=== PATIENT | female | born 1930 | race African-American/Black ===

== ENCOUNTER 2016-04-23 11:35 | Inpatient (IN) | payer MEDICARE ==
[~2016-04-23] VITALS: Ht 154.9 cm; Wt 72.6 kg
--- NOTE | 2016-04-23 12:33 | EKG ---
[facility] [address] [place] [address] Test Date: 2016-04-23 Test Time: 12:08:03 Pat Name: JAMESON FERNANDEZ Department: Room: Gender: Female Project Management It Specialist: : [id number] Requested By: PURA GRAY Order Number: [id number] Reading MD: Ayesha Smith Measurements Intervals [place] Rate: 62 P: -3 FL: 156 QRS: -31 QRSD: 154 T: 128 QT: 464 QTc: 473 Interpretive Statements SINUS RHYTHM ATRIAL PREMATURE COMPLEX(ES) ABNORMAL LEFT AXIS DEVIATION NON SPECIFIC INTRAVENTRICULAR BLOCK RI6.01 Unconfirmed report No previous ECG available for comparison Electronically Signed On 04-26-2016 15:51:55 [employer] by Ayesha Smith
--- NOTE | 2016-04-23 12:34 | PHYS DOC ---
Past Medical History Past Medical History: High Cholesterol, Hypertension Past Surgical History: No Surgical History Alcohol Use: None Drug Use: None Adult General Chief Complaint Chief Complaint: SYNCOPE HPI HPI 85-year-old female who was at [facility] today sitting in a pew and developed an episode of syncope that she said was preceded by some lightheadedness and feeling warm and sweaty. She denies any chest pain or shortness breath. The event was witnessed. She did not fall or hit her head. Patient was mildly confused upon arousal. Does not sound like there was any convulsions or abnormal muscle activity. Patient states over the last several weeks she's had ongoing flulike illness with cough and congestion. She states it her symptoms have been improving and she's been attempting to remain well-hydrated at home. She states she has never had an episode like this before. Review of Systems Review of Systems Constitutional: Denies fever or chills [] Eyes: Denies change in visual acuity, redness, or eye pain [] HENT: Has nasal congestion, denies sore throat [] Respiratory: Has cough, denies shortness of breath [] Cardiovascular: No additional information not addressed in HPI [] GI: Denies abdominal pain, nausea, vomiting, bloody stools or diarrhea [] : Denies dysuria or hematuria [] Musculoskeletal: Denies back pain or joint pain [] Integument: Denies rash or skin lesions [] Neurologic: Denies headache, focal weakness or sensory changes [] Endocrine: Denies polyuria or polydipsia [] Current Medications Current Medications Current Medications Medications (Trade) Dose Ordered Sig/[place] Start Time Stop Time Status Last Admin Dose Admin Lorazepam (Ativan) 0.5 mg 1X ONCE 04/23/16 13:15 04/23/16 13:16 DC 04/23/16 13:48 0.5 MG Allergies Allergies Allergies Coded Allergies Type Severity Reaction Last Updated Verified No Known Drug Allergies 04/23/16 No Physical Exam Physical Exam Constitutional: Well developed, well nourished, no acute distress, non-toxic appearance. [] HENT: Normocephalic, atraumatic, bilateral external ears normal, oropharynx moist, no oral exudates, nose normal. [] Eyes: PERRLA, EOMI, conjunctiva normal, no discharge. [] Neck: Normal range of motion, no tenderness, supple, no stridor. [] Cardiovascular:Heart rate regular rhythm, no murmur [] Lungs & Thorax: Bilateral breath sounds clear to auscultation [] Abdomen: Bowel sounds normal, soft, no tenderness, no masses, no pulsatile masses. [] Skin: Warm, dry, no erythema, no rash. [] Back: No tenderness, no CVA tenderness. [] Extremities: No tenderness, no cyanosis, no clubbing, ROM intact, no edema. [] Neurologic: Alert and oriented X 3, normal motor function, normal sensory function, no focal deficits noted. [] Psychologic: Affect normal, judgement normal, mood normal. [] Current Patient Data Vital Signs Vital Signs Date Time Temp Pulse Resp B/P Pulse Ox O2 Delivery O2 Flow Rate FiO2 04/23/16 12:30 66 20 125/65 98 04/23/16 12:00 Room Air 04/23/16 11:50 97.5 97.5 Lab Values Laboratory Tests Test 04/23/16 13:05 04/23/16 13:10 Influenza Type A Antigen Negative (NEGATIVE) Influenza Type B Antigen Negative (NEGATIVE) White Blood Count 5.9x10^3/uL (4.0-11.0) Red Blood Count 5.73x10^6/uL (3.50-5.40) H Hemoglobin 15.1g/dL (12.0-15.5) Hematocrit 47.0% (36.0-47.0) Mean Corpuscular Volume 82fL (79-100) Mean Corpuscular Hemoglobin 26pg (25-35) Mean Corpuscular Hemoglobin Concent 32g/dL (31-37) Red Cell Distribution Width 15.9% (11.5-14.5) H Platelet Count 189x10^3/uL (140-400) Neutrophils (%) (Auto) 78% (31-73) H Lymphocytes (%) (Auto) 14% (24-48) L Monocytes (%) (Auto) 7% (0-9) Eosinophils (%) (Auto) 0% (0-3) Basophils (%) (Auto) 1% (0-3) Neutrophils # (Auto) 4.6x10^3uL (1.8-7.7) Lymphocytes # (Auto) 0.8x10^3/uL (1.0-4.8) L Monocytes # (Auto) 0.4x10^3/uL (0.0-1.1) Eosinophils # (Auto) 0.0x10^3/uL (0.0-0.7) Basophils # (Auto) 0.0x10^3/uL (0.0-0.2) Sodium Level 139mmol/L (136-145) Potassium Level 4.1mmol/L (3.5-5.1) Chloride Level 102mmol/L (98-107) Carbon Dioxide Level 29mmol/L (21-32) Anion Gap 8 (6-14) Blood Urea Nitrogen 30mg/dL (7-20) H Creatinine 1.6mg/dL (0.6-1.0) H Estimated GFR (Cockcroft-Gault) 37.1 Glucose Level 147mg/dL (70-99) H Calcium Level 9.7mg/dL (8.5-10.1) Laboratory Tests 04/23/16 13:10 Laboratory Tests 04/23/16 13:10 EKG EKG EKG as interpreted by me shows a sinus rhythm with a rate of 62 bpm. There is non-specific intraventricular block. Radiology/Procedures Radiology/Procedures CT of the head without contrast demonstrates the following: Findings: No acute intracranial hemorrhage or midline shift or mass-effect or hydrocephalus or extra-axial fluid collection is seen. No focal hypodense area or sulci effacement is seen to indicate an acute infarct or edema radiographically. No skull fracture or pneumocephalus is seen. No opacification of the mastoid sinuses or the paranasal sinuses is seen. The maxillary sinuses are not completely seen in this study. Impression: No acute intracranial abnormality is seen. Portable view her chest does not reveal an acute cardiopulmonary process. Course & Med Decision Making Course & Med Decision Making Pertinent Labs and Imaging studies reviewed. (See chart for details) This 85-year-old female with a syncopal episode while at [facility] complete laboratory workup including EKG and a head CT. Her EKG at this time does show a nonspecific into intraventricular block but no other acute abnormalities seen. I will discuss the need to likely admit this patient for further evaluation and treatment pending further workup with cardiology to see her as well. Her symptoms do not seem related to any seizure activity. The most likely source is her ongoing illness versus cardiac etiology. At this time, the patient is in no acute distress and is totally appropriate upon my exam. Her laboratory workup is unrevealing. I discussed the need for admission with the hospitalist, Dr. Suresh, who agreed to admit the patient for further evaluation treatment with the diagnosis of syncope and possible TIA. Dragon Disclaimer Dragon Disclaimer This electronic medical record was generated, in whole or in part, using a voice recognition dictation system. Departure Departure Impression: Primary Impression: Syncope Additional Impression: TIA (transient ischemic attack) Disposition: 09 ADMITTED INPATIENT Admitting Physician: Lonnie Suresh Condition: STABLE Problem Qualifiers PURA GRAY DO Apr 23, 2016 12:34
--- NOTE | 2016-04-23 12:40 | RAD ---
Indication syncopal episode. Single view of the chest was obtained. No prior imaging is available. Heart size is normal. Slightly tortuous perhaps minimally aneurysmal dilatation of the arch of the aorta is noted. There is no congestive heart failure focal infiltrate significant pleural fluid collection or pneumothorax. IMPRESSION: Slightly prominent arch of the aorta. No acute finding apparent in the chest
[2016-04-23] MEDS ORDERED: LORAZEPAM 2 MG/ML VIAL IV ONE (13:15)
[2016-04-23 13:27] LABS: BASO % 1 % (0-3); EOS % 0 % (0-3); HEMOGLOBIN 15.1 g/dL (12.0-15.5); LYMPH # 0.8 x10^3/uL (1.0-4.8); LYMPH % 14 % (24-48); MEAN CORPUSCULAR HEMOGLOBIN 26 pg (25-35); MEAN CORPUSCULAR HGB CONC 32 g/dL (31-37); MEAN CORPUSCULAR VOLUME 82 fL (79-100); MONO % 7 % (0-9); NEUT % 78 % (31-73); PLATELET COUNT 189 x10^3/uL (140-400); RED BLOOD COUNT 5.73 x10^6/uL (3.50-5.40); RED CELL DISTRIBUTION WIDTH 15.9 % (11.5-14.5); WHITE BLOOD COUNT 5.9 x10^3/uL (4.0-11.0)
[2016-04-23] MEDS ORDERED: ONDANSETRON PF 4 MG/2 ML VIAL. IV PRN (13:30)
[2016-04-23 13:37] LABS: CALCIUM 9.7 mg/dL (8.5-10.1); CREATININE 1.6 mg/dL (0.6-1.0); GFR 37.1; POTASSIUM 4.1 mmol/L (3.5-5.1)
[2016-04-23] MEDS: IV NORMAL SALINE 1000ML BAG 1,000 ML IV SCH (13:48)
[2016-04-23 13:57] LABS: OBC FLU VALID
--- NOTE | 2016-04-23 14:11 | RAD ---
Clinical indications: Syncope. Patient is a poor historian. Technique: Noncontrast axial cross sectional scanning of the head was performed. PQRS Compliance Statement: One or more of the following individualized dose reduction techniques were utilized for this examination: 1. Automated exposure control 2. Adjustment of the mA and/or kV according to patient size 3. Use of iterative reconstruction technique Findings: No acute intracranial hemorrhage or midline shift or mass-effect or hydrocephalus or extra-axial fluid collection is seen. No focal hypodense area or sulci effacement is seen to indicate an acute infarct or edema radiographically. No skull fracture or pneumocephalus is seen. No opacification of the mastoid sinuses or the paranasal sinuses is seen. The maxillary sinuses are not completely seen in this study. Impression: No acute intracranial abnormality is seen.
--- NOTE | 2016-04-23 16:05 | ACF ---
Admission Forms Criteria SYNCOPE Clinical Indications for Admission to Inpatient Care ( Place 'X' for any and all applicable criteria): Admission is indicated for syncope and ANY ONE of the following (1)(2)(3)(4)(5) (6)(7) : [X]I. Inpatient admission required rather than observation care (Also use Syncope: Observation Care Criteria as appropriate) because of ANY ONE of the following: [ ]a) Hemodynamic instability that is severe or persistent [ ]b) Cardiac arrhythmias of immediate concern identified or strongly suspected (eg, needs electrophysiologic study) [ ]c) Acute coronary syndrome identified (Also use Myocardial Infarction or Angina Criteria form ) [ ]d) Structural cardiac disorder (eg, aortic stenosis) suspected as cause that requires immediate correction [ ]e) Respiratory symptoms (eg, dyspnea, tachypnea) that are severe or persistent [ ]f) Neurologic signs or symptoms that are severe or persistent ( eg, stroke, seizures, altered mental status) [ ]g) Severe electrolyte abnormalities requiring inpatient care [ ]h) Supplemental oxygen or respiratory treatment for over 24 hrs that are performable only in acute inpatient setting [ ]i) IV fluid to replace significant ongoing (eg, for over 24 hrs ) losses (>3 L/m2 per day) [ ]j) Continuous intravenous infusion of anticoagulation, platelet inhibitor, vasoactive, or antiarrhythmic medication(15)(16) [ ]k) Pulmonary artery catheter monitoring [ ]l) Temporary pacemaker placement(17) [ ]m) Emergent cardioversion(18) [X]n) Other conditions, treatment or monitoring requiring inpatient admission [ ]II. Suspicion of imminently dangerous cause (eg, rare causes like pericardial tamponade, pulmonary embolism) [ ]III. Syncope causing severe injury requiring hospitalization Extended stay beyond goal length of stay may be needed for(28) [ ]a) Dangerous arrhythmia(15)(23)(27)(29) [ ]b) Myocardial ischemia [ ]c) Seizure disorder [ ]d) Syncope-related injuries The original [employer] content created by [employer] has been revised. The portions of the content which have been revised are identified through the use of italic text or in bold, and [employer] has neither reviewed nor approved the modified material. All other unmodified content is copyright [employer]. Please see references footnoted in the original [facility] edition 2016 Admission Criteria Met?: Yes BINU KOO Apr 23, 2016 16:05
[2016-04-23 16:24] VITALS: BP 138/71
[2016-04-23] MEDS ORDERED: ATOR10TA60 PO (17:24)
[2016-04-23] MEDS ORDERED: CHOL10003 PO (17:27)
[2016-04-23] MEDS ORDERED: HYDR25TA9 PO (17:27)
[2016-04-23] MEDS ORDERED: LISI-334 PO (17:27)
[2016-04-23] MEDS ORDERED: FLUT16SP NS (17:27)
[2016-04-23 19:00] VITALS: BP 134/84
[2016-04-23 20:49] VITALS: BP 134/84
[2016-04-23] MEDS: ATORVASTATIN CALCIUM 10 MG TABLET. PO SCH (21:00)
[2016-04-23 23:00] VITALS: BP 115/77
[2016-04-24] VITALS (7 sets, daily range): BP systolic 88–151; BP diastolic 34–76
--- NOTE | 2016-04-24 03:08 | HP ---
ADMIT DATE: 04/23/2016 CHIEF COMPLAINT: Syncope. HISTORY OF PRESENT ILLNESS: The patient is a pleasant elderly female who was at [employer] today. ____ then developed a sensation of heat, flushing, and then passed out. She was out for a minute or two. She ____ remember much. She is brought to the ER where she is noted to be dehydrated with elevated BUN and creatinine. I have discussed the case with the ER physician. We are going to admit the patient, give her fluids and consult Cardiology and Nephrology. PAST MEDICAL HISTORY: Hyperlipidemia, hypertension. ALLERGIES: None. FAMILY HISTORY: Hypertension. SOCIAL HISTORY: She does not drink, smoke or take drugs. MEDICATIONS: Reviewed. Please refer to the MRAD. REVIEW OF SYSTEMS: GENERAL: No history of weight change, weakness or fevers. SKIN: No bruising, hair changes or rashes. EYES: No blurred, double or loss of vision. NOSE AND THROAT: No history of nosebleeds, hoarseness or sore throat. HEART: No history of palpitations, chest pain or shortness of breath on exertion. LUNGS: Denies cough, hemoptysis, wheezing or shortness of breath. GASTROINTESTINAL: Denies changes in appetite, nausea, vomiting, diarrhea or constipation. GENITOURINARY: No history of frequency, urgency, hesitancy or nocturia. NEUROLOGIC: Denies history of numbness, tingling, tremor or weakness. PSYCHIATRIC: No history of panic, anxiety or depression. ENDOCRINE: No history of heat or cold intolerance, polyuria or polydipsia. EXTREMITIES: Denies muscle weakness, joint pain, pain on walking or stiffness. PHYSICAL EXAMINATION: VITAL SIGNS: Temperature afebrile, pulse 74, respirations 18, blood pressure 138/71. GENERAL: She is alert, cooperative. HEART: Normal S1, S2. LUNGS: Clear. ABDOMEN: Soft, positive bowel sounds. EXTREMITIES: No edema. SKIN: No rashes. PSYCHIATRIC: Stable. VASCULAR: Good capillary refill. ENDOCRINE: No thyromegaly. LYMPHATICS: No cervical nodes. HEMATOPOIETIC: No bruising. LABORATORY DATA: Hematology normal. Electrolytes: Sodium 139, potassium 4.1, chloride 102, bicarbonate 29, BUN 30, creatinine 1.6, glucose 147. CT of the head is negative. Chest x-ray: Prominent aortic arch, but otherwise negative. ASSESSMENT AND PLAN: Syncope with dehydration. The patient has been admitted. We will give her IV fluids. Consult Nephrology, consult Cardiology. Resume home medicines. PT, OT, alf evaluation. MICAH GALLEGOS DO DR: JANAE/shelton JOB#: [id number] / [id number]
[2016-04-24] MEDS: IV NORMAL SALINE 1000ML BAG 1,000 ML IV SCH ×2 (05:04→20:09)
[2016-04-24 05:39] LABS: BASO % 0 % (0-3); EOS % 2 % (0-3); HEMATOCRIT 43.6 % (36.0-47.0); HEMOGLOBIN 13.9 g/dL (12.0-15.5); LYMPH # 1.8 x10^3/uL (1.0-4.8); LYMPH % 36 % (24-48); MEAN CORPUSCULAR HEMOGLOBIN 26 pg (25-35); MEAN CORPUSCULAR HGB CONC 32 g/dL (31-37); MEAN CORPUSCULAR VOLUME 82 fL (79-100); MONO % 10 % (0-9); NEUT % 52 % (31-73); PLATELET COUNT 176 x10^3/uL (140-400); RED CELL DISTRIBUTION WIDTH 15.9 % (11.5-14.5); WHITE BLOOD COUNT 4.9 x10^3/uL (4.0-11.0)
[2016-04-24 05:51] LABS: CALCIUM 8.9 mg/dL (8.5-10.1); CREATININE 1.4 mg/dL (0.6-1.0); GFR 43.2; POTASSIUM 4.1 mmol/L (3.5-5.1)
[2016-04-24] MEDS: FLUTICASONE 50MCG/NASAL SPRAY 16GM BOTTLE. NS SCH (08:31)
[2016-04-24] MEDS: LISINOPRIL 20 MG TABLET PO SCH (08:31)
[2016-04-24] MEDS: CHOLECALCIFEROL (VITAMIN D3) 1,000 UNIT TABLET PO SCH (08:31)
[2016-04-24] MEDS: HYDROCHLOROTHIAZIDE 25 MG TABLET PO SCH (08:31)
--- NOTE | 2016-04-24 10:52 | PDOC ---
PROGRESS NOTES Chief Complaint Chief Complaint 1. Syncope 2. Dehydration 3. Hypertension 4. Hyperlipidemia 5. Azotemia History of Present Illness History of Present Illness Pt awake, alert, and oriented watching TV when seen this morning. Pt states that she is feeling "much better". All patients questions and concerns addressed and answered. Pt was able to get a shower this morning. Vitals Vitals Vital Signs Date Time Temp Pulse Resp B/P Pulse Ox O2 Delivery O2 Flow Rate FiO2 04/24/16 08:31 60 151/74 04/24/16 08:00 Room Air 04/24/16 07:00 98.4 20 100 98.4 Physical Exam General: Alert, Oriented X3, Cooperative, No acute distress Heart: Regular rate, Normal S1, Normal S2 Lungs: Clear Abdomen: Normal bowel sounds, Soft, No tenderness, No hepatosplenomegaly Extremities: No clubbing, No cyanosis, No edema, Normal pulses Skin: No rashes, No breakdown, No significant lesion Labs LABS Laboratory Tests Test 04/23/16 13:05 04/23/16 13:10 04/24/16 04:45 Influenza Type A Antigen Negative (NEGATIVE) Influenza Type B Antigen Negative (NEGATIVE) White Blood Count 5.9x10^3/uL (4.0-11.0) 4.9x10^3/uL (4.0-11.0) Red Blood Count 5.73x10^6/uL (3.50-5.40) 5.30x10^6/uL (3.50-5.40) Hemoglobin 15.1g/dL (12.0-15.5) 13.9g/dL (12.0-15.5) Hematocrit 47.0% (36.0-47.0) 43.6% (36.0-47.0) Mean Corpuscular Volume 82fL (79-100) 82fL (79-100) Mean Corpuscular Hemoglobin 26pg (25-35) 26pg (25-35) Mean Corpuscular Hemoglobin Concent 32g/dL (31-37) 32g/dL (31-37) Red Cell Distribution Width 15.9% (11.5-14.5) 15.9% (11.5-14.5) Platelet Count 189x10^3/uL (140-400) 176x10^3/uL (140-400) Neutrophils (%) (Auto) 78% (31-73) 52% (31-73) Lymphocytes (%) (Auto) 14% (24-48) 36% (24-48) Monocytes (%) (Auto) 7% (0-9) 10% (0-9) Eosinophils (%) (Auto) 0% (0-3) 2% (0-3) Basophils (%) (Auto) 1% (0-3) 0% (0-3) Neutrophils # (Auto) 4.6x10^3uL (1.8-7.7) 2.5x10^3uL (1.8-7.7) Lymphocytes # (Auto) 0.8x10^3/uL (1.0-4.8) 1.8x10^3/uL (1.0-4.8) Monocytes # (Auto) 0.4x10^3/uL (0.0-1.1) 0.5x10^3/uL (0.0-1.1) Eosinophils # (Auto) 0.0x10^3/uL (0.0-0.7) 0.1x10^3/uL (0.0-0.7) Basophils # (Auto) 0.0x10^3/uL (0.0-0.2) 0.0x10^3/uL (0.0-0.2) Sodium Level 139mmol/L (136-145) 143mmol/L (136-145) Potassium Level 4.1mmol/L (3.5-5.1) 4.1mmol/L (3.5-5.1) Chloride Level 102mmol/L (98-107) 109mmol/L (98-107) Carbon Dioxide Level 29mmol/L (21-32) 26mmol/L (21-32) Anion Gap 8 (6-14) 8 (6-14) Blood Urea Nitrogen 30mg/dL (7-20) 30mg/dL (7-20) Creatinine 1.6mg/dL (0.6-1.0) 1.4mg/dL (0.6-1.0) Estimated GFR (Cockcroft-Gault) 37.1 43.2 Glucose Level 147mg/dL (70-99) 82mg/dL (70-99) Calcium Level 9.7mg/dL (8.5-10.1) 8.9mg/dL (8.5-10.1) Review of Systems Review of Systems Patient complaint of fatigue Patient complaint of hunger Assessment and Plan Assessmemt and Plan Problems Medical Problems: (1) Syncope Status: Acute (2) TIA (transient ischemic attack) Status: Acute Assessment: 1. Syncope 2. Dehydration 3. Hypertension 4. Hyperlipidemia 5. Azotemia Plan: Continue to monitor patient per floor protocol Monitor daily labs- CBC, BMP, BUN, Cr Daily PTOT-evaluation and treatment Continue IVFs at 100 cc/hr Continue home meds Await Cardiology and Nephrology input and evaluation AIDAN RN Problems: Comment Review of Relevant I have reviewed the following items regina (where applicable) has been applied. Labs Laboratory Tests Test 04/23/16 13:05 04/23/16 13:10 04/24/16 04:45 Influenza Type A Antigen Negative (NEGATIVE) Influenza Type B Antigen Negative (NEGATIVE) White Blood Count 5.9x10^3/uL (4.0-11.0) 4.9x10^3/uL (4.0-11.0) Red Blood Count 5.73x10^6/uL (3.50-5.40) 5.30x10^6/uL (3.50-5.40) Hemoglobin 15.1g/dL (12.0-15.5) 13.9g/dL (12.0-15.5) Hematocrit 47.0% (36.0-47.0) 43.6% (36.0-47.0) Mean Corpuscular Volume 82fL (79-100) 82fL (79-100) Mean Corpuscular Hemoglobin 26pg (25-35) 26pg (25-35) Mean Corpuscular Hemoglobin Concent 32g/dL (31-37) 32g/dL (31-37) Red Cell Distribution Width 15.9% (11.5-14.5) 15.9% (11.5-14.5) Platelet Count 189x10^3/uL (140-400) 176x10^3/uL (140-400) Neutrophils (%) (Auto) 78% (31-73) 52% (31-73) Lymphocytes (%) (Auto) 14% (24-48) 36% (24-48) Monocytes (%) (Auto) 7% (0-9) 10% (0-9) Eosinophils (%) (Auto) 0% (0-3) 2% (0-3) Basophils (%) (Auto) 1% (0-3) 0% (0-3) Neutrophils # (Auto) 4.6x10^3uL (1.8-7.7) 2.5x10^3uL (1.8-7.7) Lymphocytes # (Auto) 0.8x10^3/uL (1.0-4.8) 1.8x10^3/uL (1.0-4.8) Monocytes # (Auto) 0.4x10^3/uL (0.0-1.1) 0.5x10^3/uL (0.0-1.1) Eosinophils # (Auto) 0.0x10^3/uL (0.0-0.7) 0.1x10^3/uL (0.0-0.7) Basophils # (Auto) 0.0x10^3/uL (0.0-0.2) 0.0x10^3/uL (0.0-0.2) Sodium Level 139mmol/L (136-145) 143mmol/L (136-145) Potassium Level 4.1mmol/L (3.5-5.1) 4.1mmol/L (3.5-5.1) Chloride Level 102mmol/L (98-107) 109mmol/L (98-107) Carbon Dioxide Level 29mmol/L (21-32) 26mmol/L (21-32) Anion Gap 8 (6-14) 8 (6-14) Blood Urea Nitrogen 30mg/dL (7-20) 30mg/dL (7-20) Creatinine 1.6mg/dL (0.6-1.0) 1.4mg/dL (0.6-1.0) Estimated GFR (Cockcroft-Gault) 37.1 43.2 Glucose Level 147mg/dL (70-99) 82mg/dL (70-99) Calcium Level 9.7mg/dL (8.5-10.1) 8.9mg/dL (8.5-10.1) Laboratory Tests Test 04/23/16 13:05 04/23/16 13:10 04/24/16 04:45 Influenza Type A Antigen Negative (NEGATIVE) Influenza Type B Antigen Negative (NEGATIVE) White Blood Count 5.9x10^3/uL (4.0-11.0) 4.9x10^3/uL (4.0-11.0) Red Blood Count 5.73x10^6/uL (3.50-5.40) 5.30x10^6/uL (3.50-5.40) Hemoglobin 15.1g/dL (12.0-15.5) 13.9g/dL (12.0-15.5) Hematocrit 47.0% (36.0-47.0) 43.6% (36.0-47.0) Mean Corpuscular Volume 82fL (79-100) 82fL (79-100) Mean Corpuscular Hemoglobin 26pg (25-35) 26pg (25-35) Mean Corpuscular Hemoglobin Concent 32g/dL (31-37) 32g/dL (31-37) Red Cell Distribution Width 15.9% (11.5-14.5) 15.9% (11.5-14.5) Platelet Count 189x10^3/uL (140-400) 176x10^3/uL (140-400) Neutrophils (%) (Auto) 78% (31-73) 52% (31-73) Lymphocytes (%) (Auto) 14% (24-48) 36% (24-48) Monocytes (%) (Auto) 7% (0-9) 10% (0-9) Eosinophils (%) (Auto) 0% (0-3) 2% (0-3) Basophils (%) (Auto) 1% (0-3) 0% (0-3) Neutrophils # (Auto) 4.6x10^3uL (1.8-7.7) 2.5x10^3uL (1.8-7.7) Lymphocytes # (Auto) 0.8x10^3/uL (1.0-4.8) 1.8x10^3/uL (1.0-4.8) Monocytes # (Auto) 0.4x10^3/uL (0.0-1.1) 0.5x10^3/uL (0.0-1.1) Eosinophils # (Auto) 0.0x10^3/uL (0.0-0.7) 0.1x10^3/uL (0.0-0.7) Basophils # (Auto) 0.0x10^3/uL (0.0-0.2) 0.0x10^3/uL (0.0-0.2) Sodium Level 139mmol/L (136-145) 143mmol/L (136-145) Potassium Level 4.1mmol/L (3.5-5.1) 4.1mmol/L (3.5-5.1) Chloride Level 102mmol/L (98-107) 109mmol/L (98-107) Carbon Dioxide Level 29mmol/L (21-32) 26mmol/L (21-32) Anion Gap 8 (6-14) 8 (6-14) Blood Urea Nitrogen 30mg/dL (7-20) 30mg/dL (7-20) Creatinine 1.6mg/dL (0.6-1.0) 1.4mg/dL (0.6-1.0) Estimated GFR (Cockcroft-Gault) 37.1 43.2 Glucose Level 147mg/dL (70-99) 82mg/dL (70-99) Calcium Level 9.7mg/dL (8.5-10.1) 8.9mg/dL (8.5-10.1) Medications Current Medications Lorazepam (Ativan) 0.5 mg 1X ONCE IV Last administered on 04/23/16 13:48; Start 04/23/16 at 13:15; Stop 04/23/16 at 13:16; Status DC Ondansetron HCl 4 mg 4 mg PRN Q8HRS PRN IV NAUSEA/VOMITING; Start 04/23/16 at 13 :30; Stop 04/24/16 at 13:29 Sodium Chloride (Iv Sodium Chloride 0.9% 1000ml Bag) 1,000 ml @ 100 mls/hr Q10H IV Last administered on 04/24/16 05:04; Start 04/23/16 at 13:24; Stop 12/29 at 13:23 Atorvastatin Calcium (Lipitor) 10 mg HS PO ; Start 04/23/16 at 21:00 Vitamin D (Vitamin D3) 1,000 unit DAILY PO Last administered on 04/24/16 08:31 ; Start 04/24/16 at 09:00 Fluticasone Propionate (Flonase) 2 spray DAILY NS Last administered on 08:31; Start 04/24/16 at 09:00 Hydrochlorothiazide (Hydrodiuril) 25 mg DAILY PO Last administered on 08:31; Start 04/24/16 at 09:00 Lisinopril (Prinivil) 20 mg DAILY PO Last administered on 04/24/16 08:31; Start 04/24/16 at 09:00 Active Scripts Active Reported Vitamin D3 (Cholecalciferol (Vitamin D3)) 1,000 Unit Tablet 1,000 Unit PO Lisinopril 20 Mg Tablet 20 Mg PO DAILY Hydrochlorothiazide Tablet (Hydrochlorothiazide) 25 Mg Tablet 25 Mg PO DAILY Fluticasone Propionate Nasal [place] (Fluticasone Propionate) 16 Gm [place].susp 2 [place] NS DAILY Atorvastatin Calcium 10 Mg Tablet 10 Mg PO HS Vitals/I & O Vital Sign - Last 24 Hours 04/23/16 04/23/16 04/23/16 04/23/16 11:50 12:00 12:30 13:30 Temp 97.5 97.5 Pulse 62 58 66 72 Resp 16 16 20 20 B/P 136/67 157/76 125/65 128/68 Pulse Ox 99 96 98 97 O2 Delivery Room Air Room Air 04/23/16 04/23/16 04/23/16 04/23/16 14:00 14:30 15:00 15:30 Pulse 62 70 74 62 Resp 24 20 22 22 B/P 167/61 117/81 113/85 135/67 Pulse Ox 95 93 93 97 O2 Delivery Room Air 04/23/16 04/23/16 04/23/16 04/23/16 16:24 17:55 19:00 20:00 Temp 97.8 96.4 97.8 96.4 Pulse 61 68 Resp 18 18 B/P 138/71 134/84 Pulse Ox 100 99 O2 Delivery Room Air Room Air Room Air Room Air 04/23/16 04/24/16 04/24/16 04/24/16 23:00 03:00 07:00 08:00 Temp 97.9 97.7 98.4 97.9 97.7 98.4 Pulse 51 59 60 Resp 18 18 20 B/P 115/77 136/73 151/74 Pulse Ox 94 100 100 O2 Delivery Room Air Room Air Room Air Room Air 04/24/16 08:31 Pulse 60 B/P 151/74 Intake and Output 04/23/16 04/23/16 04/24/16 15:00 23:00 07:00 Intake Total 250 ml 250 ml Output Total 400 ml Balance -150 ml 250 ml MICAH GALLEGOS III DO Apr 24, 2016 10:52
--- NOTE | 2016-04-24 12:00 | PDOC2 ---
CHERELLE SUMMERS [employer]IN [employer] 04/24/16 1200: CARDIAC CONSULT DATE OF CONSULT Date of Consult DATE: 04/24/16 TIME: 11:50 REASON FOR CONSULT Reason for Consult: syncope REFERRING PHYSICIAN Referring Physician: Simone SOURCE Source: Chart review, Patient HISTORY OF PRESENT ILLNESS HISTORY OF PRESENT ILLNESS This is a pleasant 85 yo female admitted for complains of passing out. Reports that she is quite active exercising 45 minutes 3x weekly at [facility] and no problems with tolerance. 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 Yesterday she took her BP medications including her HCTZ. She had less than a glass of fluids then went to her [employer]. She sat down and felt flushed and was diaphoretic and dizzy then she leaned forward then passed out. This was witnessed and no apparent injury This lasted for few seconds. Denies any chest pain palpitations, SOA. No recent nausea , vomiting, diarrhea. She has been battling this URI symptoms which started about 2 weeks ago and is now getting better. She does have some sinus allergies. Denies any CAD, VTE, CVA in the past. There was no signs of seizures. No noted facial droop, dyarthria, visual /auditory disturbances, nor unilateral weakness. Slight confusion upon awakening but no incontinence. PAST MEDICAL HISTORY Cardiovascular: HTN, Hyperlipidemia Pulmonary: No pertinent hx CENTRAL NERVOUS SYSTEM: Other (No pertinent history) GI: No pertinent hx Heme/Onc: No pertinent hx Hepatobiliary: No pertinent hx Psych: No pertinent hx Musculoskeletal: Osteoarthritis Infectious disease: No pertinent hx ENT: Allergic Rhinitis Renal/: Chronic renal insuff Endocrine: No pertinent hx Dermatology: No pertinent hx PAST SURGICAL HISTORY Past Surgical History: Other (left ankle surgery) FAMILY HISTORY Family History noncontributory to age SOCIAL HISTORY Smoke: No ALCOHOL: none Drugs: None Lives: Alone CURRENT MEDICATIONS CURRENT MEDICATIONS Current Medications Medications (Trade) Dose Ordered Sig/[place] Route PRN Reason Start Time Stop Time Status Last Admin Dose Admin Lorazepam 0.5 mg 0.5 mg 1X ONCE IV 04/23/16 13:15 04/23/16 13:16 DC 04/23/16 13:48 Sodium Chloride (Iv Sodium Chloride 0.9% 1000ml Bag) 1,000 ml @ 100 mls/hr Q10H IV 04/23/16 13:24 04/24/16 13:23 04/24/16 05:04 Vitamin D (Vitamin D3) 1,000 unit DAILY PO 04/24/16 09:00 04/24/16 08:31 Fluticasone Propionate (Flonase) 2 spray DAILY NS 04/24/16 09:00 04/24/16 08:31 Hydrochlorothiazide (Hydrodiuril) 25 mg DAILY PO 04/24/16 09:00 04/24/16 08:31 Lisinopril (Prinivil) 20 mg DAILY PO 04/24/16 09:00 04/24/16 08:31 ALLERGIES ALLERGIES: Coded Allergies: No Known Drug Allergies (Unverified , 04/23/16) ROS Review of System 14 point ROS evaluated with pertinent positives noted per HPI PHYSICAL EXAM General: Alert, Oriented X3, Cooperative, No acute distress HEENT: Atraumatic, Mucous membr. moist/pink Lungs: Clear to auscultation, Normal air movement Heart: Regular rate, Normal S1, Normal S2, Other (2/6 systolic murmur to YANIRA border) Extremities: No cyanosis, No edema Skin: No breakdown Neuro: Normal speech, Sensation intact Psych/Mental Status: Mental status NL, Mood NL MUSCULOSKELETAL: Osteoarthritic changes both hands VITALS VITALS Vital Signs Date Time Temp Pulse Resp B/P Pulse Ox O2 Delivery O2 Flow Rate FiO2 04/24/16 11:00 97.3 60 20 121/70 99 Room Air 97.3 LABS Lab: Laboratory Tests Test 04/23/16 13:05 04/23/16 13:10 04/24/16 04:45 Influenza Type A Antigen Negative (NEGATIVE) Influenza Type B Antigen Negative (NEGATIVE) White Blood Count 5.9x10^3/uL (4.0-11.0) 4.9x10^3/uL (4.0-11.0) Red Blood Count 5.73x10^6/uL (3.50-5.40) 5.30x10^6/uL (3.50-5.40) Hemoglobin 15.1g/dL (12.0-15.5) 13.9g/dL (12.0-15.5) Hematocrit 47.0% (36.0-47.0) 43.6% (36.0-47.0) Mean Corpuscular Volume 82fL (79-100) 82fL (79-100) Mean Corpuscular Hemoglobin 26pg (25-35) 26pg (25-35) Mean Corpuscular Hemoglobin Concent 32g/dL (31-37) 32g/dL (31-37) Red Cell Distribution Width 15.9% (11.5-14.5) 15.9% (11.5-14.5) Platelet Count 189x10^3/uL (140-400) 176x10^3/uL (140-400) Neutrophils (%) (Auto) 78% (31-73) 52% (31-73) Lymphocytes (%) (Auto) 14% (24-48) 36% (24-48) Monocytes (%) (Auto) 7% (0-9) 10% (0-9) Eosinophils (%) (Auto) 0% (0-3) 2% (0-3) Basophils (%) (Auto) 1% (0-3) 0% (0-3) Neutrophils # (Auto) 4.6x10^3uL (1.8-7.7) 2.5x10^3uL (1.8-7.7) Lymphocytes # (Auto) 0.8x10^3/uL (1.0-4.8) 1.8x10^3/uL (1.0-4.8) Monocytes # (Auto) 0.4x10^3/uL (0.0-1.1) 0.5x10^3/uL (0.0-1.1) Eosinophils # (Auto) 0.0x10^3/uL (0.0-0.7) 0.1x10^3/uL (0.0-0.7) Basophils # (Auto) 0.0x10^3/uL (0.0-0.2) 0.0x10^3/uL (0.0-0.2) Sodium Level 139mmol/L (136-145) 143mmol/L (136-145) Potassium Level 4.1mmol/L (3.5-5.1) 4.1mmol/L (3.5-5.1) Chloride Level 102mmol/L (98-107) 109mmol/L (98-107) Carbon Dioxide Level 29mmol/L (21-32) 26mmol/L (21-32) Anion Gap 8 (6-14) 8 (6-14) Blood Urea Nitrogen 30mg/dL (7-20) 30mg/dL (7-20) Creatinine 1.6mg/dL (0.6-1.0) 1.4mg/dL (0.6-1.0) Estimated GFR (Cockcroft-Gault) 37.1 43.2 Glucose Level 147mg/dL (70-99) 82mg/dL (70-99) Calcium Level 9.7mg/dL (8.5-10.1) 8.9mg/dL (8.5-10.1) ASSESSMENT/PLAN ASSESSMENT/PLAN 1. Syncope: no apparent injury 2. LBBB: suspect chronic? sinus arrhythmia with LAE/LAFB via EKG 3. HTN 4. HLP 5. URI/viral syndrome improving started 2 wks ago 6. Prerenal azotemia, underlying CKD Recommendations 1. TTE today 2. Mg, LFTs, lipids, TSH 3. IVF 4. Neurology and Nephrology are on board. 5. Will consider for event monitor. 6. Not on tele monitor and will place. 7. Obtain orhtostatic readings. Problems: TRE KEVIN MD 04/24/161928: CARDIAC CONSULT ALLERGIES ALLERGIES: Coded Allergies: No Known Drug Allergies (Unverified , 04/23/16) ASSESSMENT/PLAN ASSESSMENT/PLAN Patient seen and examined. Agree with above nurse practitioner note. 85-year-old woman presenting with vasovagal syncope. No significant abnormalities on examination. Echocardiogram within normal limits. No further cardiac testing necessary. Please call with further questions. Thank you for this consultation. Problems: CHERELLE SUMMERS APRN Apr 24, 2016 12:00 TRE KEVIN MD Apr 24, 2016 19:29
[2016-04-24 12:49] LABS: ALBUMIN 3.2 g/dL (3.4-5.0); DIRECT BILIRUBIN 0.1 mg/dL (0.0-0.2); MAGNESIUM 1.9 mg/dL (1.8-2.4); TOTAL BILIRUBIN 0.5 mg/dL (0.2-1.0); TOTAL PROTEIN 6.6 g/dL (6.4-8.2)
[2016-04-24 12:51] LABS: CHOLESTEROL/HDL RATIO 3.2
[2016-04-24 14:50] LABS: BILIRUBIN,URINE NEGATIVE (NEG); GLUCOSE,URINE NEGATIVE (NEG); NITRITE,URINE NEGATIVE (NEG); PH,URINE 6.5; PROTEIN,URINE NEGATIVE (NEG-TRACE)
--- NOTE | 2016-04-24 14:54 | PDOC2 ---
CONSULT Date of Consult Date of Consult DATE: 04/24/16 TIME: 14:51 Reason for Consult Reason for Consult: ^ creat Referring Physician Referring Physician: Dr Suresh Identification/Chief Complaint Chief Complaint Warm and Flushed at jehovah's witness Problems: Source Source: Chart review, Patient History of Present Illness Reason for Visit: as dictated Past Medical History Cardiovascular: HTN, Hyperlipidemia Pulmonary: No pertinent hx CENTRAL NERVOUS SYSTEM: Other (No pertinent history) GI: No pertinent hx Heme/Onc: No pertinent hx Hepatobiliary: No pertinent hx Psych: No pertinent hx Musculoskeletal: Osteoarthritis Infectious disease: No pertinent hx ENT: Allergic Rhinitis Renal/: Chronic renal insuff Endocrine: No pertinent hx Dermatology: No pertinent hx Past Surgical History Past Surgical History: Other (left ankle surgery) Social History No ALCOHOL: none Drugs: None Lives: Alone Current Problem List Problem List Problems Medical Problems: (1) Syncope Status: Acute (2) TIA (transient ischemic attack) Status: Acute Current Medications Current Medications Current Medications Lorazepam (Ativan) 0.5 mg 1X ONCE IV Last administered on 04/23/16 13:48; Start 04/23/16 at 13:15; Stop 04/23/16 at 13:16; Status DC Ondansetron HCl 4 mg 4 mg PRN Q8HRS PRN IV NAUSEA/VOMITING; Start 04/23/16 at 13 :30; Stop 04/24/16 at 13:29; Status DC Sodium Chloride (Iv Sodium Chloride 0.9% 1000ml Bag) 1,000 ml @ 100 mls/hr Q10H IV Last administered on 04/24/16 05:04; Start 04/23/16 at 13:24; Stop 12/29 at 13:23; Status DC Atorvastatin Calcium (Lipitor) 10 mg HS PO ; Start 04/23/16 at 21:00 Vitamin D (Vitamin D3) 1,000 unit DAILY PO Last administered on 04/24/16 08:31 ; Start 04/24/16 at 09:00 Fluticasone Propionate (Flonase) 2 spray DAILY NS Last administered on 08:31; Start 04/24/16 at 09:00 Hydrochlorothiazide (Hydrodiuril) 25 mg DAILY PO Last administered on 08:31; Start 04/24/16 at 09:00 Lisinopril (Prinivil) 20 mg DAILY PO Last administered on 04/24/16t 08:31; Start 04/24/16 at 09:00 Active Scripts Active Reported Vitamin D3 (Cholecalciferol (Vitamin D3)) 1,000 Unit Tablet 1,000 Unit PO Lisinopril 20 Mg Tablet 20 Mg PO DAILY Hydrochlorothiazide Tablet (Hydrochlorothiazide) 25 Mg Tablet 25 Mg PO DAILY Fluticasone Propionate Nasal [place] (Fluticasone Propionate) 16 Gm [place].susp 2 [place] NS DAILY Atorvastatin Calcium 10 Mg Tablet 10 Mg PO HS Allergies Allergies: Coded Allergies: No Known Drug Allergies (Unverified , 04/23/16) ROS Review of System -ve x for as noted in HPI Physical Exam Physical Exam GEN: Awake, Oriented x 3, In no distress EYES: Vision Unchanged, Conjunctiva Normal EN: No EN Drainage, Mucous Membranes moist NECK: no JVD, min JVP, Supple, no Thyromegaly CVS: S1S2, ? Murmur, No Gallop, No Rub,no Edema RESP: no Rales, no Rhonchi,no Acc. Muscle Use GI: BS + ve, NO Bruit, Non Tender, Non Distended : no CVA tenderness, no Suprapubic Tenderness Vital Signs Vital Signs Date Time Temp Pulse Resp B/P Pulse Ox O2 Delivery O2 Flow Rate FiO2 04/24/16 11:00 97.3 60 20 121/70 99 Room Air 97.3 Assessment & Plan CKD III - HTNSive AAS/ NS - pt claims she follows with her PCP in [place] ([facility]) for the same and does not wnat US etc here. Will be avail if creat rises further - pl call over weekend prn Labs Labs Laboratory Tests Test 04/23/16 13:05 04/23/16 13:10 04/24/16 04:45 Influenza Type A Antigen Negative (NEGATIVE) Influenza Type B Antigen Negative (NEGATIVE) White Blood Count 5.9x10^3/uL (4.0-11.0) 4.9x10^3/uL (4.0-11.0) Red Blood Count 5.73x10^6/uL (3.50-5.40) 5.30x10^6/uL (3.50-5.40) Hemoglobin 15.1g/dL (12.0-15.5) 13.9g/dL (12.0-15.5) Hematocrit 47.0% (36.0-47.0) 43.6% (36.0-47.0) Mean Corpuscular Volume 82fL (79-100) 82fL (79-100) Mean Corpuscular Hemoglobin 26pg (25-35) 26pg (25-35) Mean Corpuscular Hemoglobin Concent 32g/dL (31-37) 32g/dL (31-37) Red Cell Distribution Width 15.9% (11.5-14.5) 15.9% (11.5-14.5) Platelet Count 189x10^3/uL (140-400) 176x10^3/uL (140-400) Neutrophils (%) (Auto) 78% (31-73) 52% (31-73) Lymphocytes (%) (Auto) 14% (24-48) 36% (24-48) Monocytes (%) (Auto) 7% (0-9) 10% (0-9) Eosinophils (%) (Auto) 0% (0-3) 2% (0-3) Basophils (%) (Auto) 1% (0-3) 0% (0-3) Neutrophils # (Auto) 4.6x10^3uL (1.8-7.7) 2.5x10^3uL (1.8-7.7) Lymphocytes # (Auto) 0.8x10^3/uL (1.0-4.8) 1.8x10^3/uL (1.0-4.8) Monocytes # (Auto) 0.4x10^3/uL (0.0-1.1) 0.5x10^3/uL (0.0-1.1) Eosinophils # (Auto) 0.0x10^3/uL (0.0-0.7) 0.1x10^3/uL (0.0-0.7) Basophils # (Auto) 0.0x10^3/uL (0.0-0.2) 0.0x10^3/uL (0.0-0.2) Sodium Level 139mmol/L (136-145) 143mmol/L (136-145) Potassium Level 4.1mmol/L (3.5-5.1) 4.1mmol/L (3.5-5.1) Chloride Level 102mmol/L (98-107) 109mmol/L (98-107) Carbon Dioxide Level 29mmol/L (21-32) 26mmol/L (21-32) Anion Gap 8 (6-14) 8 (6-14) Blood Urea Nitrogen 30mg/dL (7-20) 30mg/dL (7-20) Creatinine 1.6mg/dL (0.6-1.0) 1.4mg/dL (0.6-1.0) Estimated GFR (Cockcroft-Gault) 37.1 43.2 Glucose Level 147mg/dL (70-99) 82mg/dL (70-99) Calcium Level 9.7mg/dL (8.5-10.1) 8.9mg/dL (8.5-10.1) Magnesium Level 1.9mg/dL (1.8-2.4) Total Bilirubin 0.5mg/dL (0.2-1.0) Direct Bilirubin 0.1mg/dL (0.0-0.2) Aspartate Amino Transf (AST/SGOT) 16U/L (15-37) Alanine Aminotransferase (ALT/SGPT) 19U/L (14-59) Alkaline Phosphatase 61U/L (46-116) Total Protein 6.6g/dL (6.4-8.2) Albumin 3.2g/dL (3.4-5.0) Triglycerides Level 48mg/dL (0-150) Cholesterol Level 149mg/dL (0-200) LDL Cholesterol, Calculated 92mg/dL (0-100) VLDL Cholesterol, Calculated 10mg/dL (0-40) HDL Cholesterol 47mg/dL (40-60) Cholesterol/HDL Ratio 3.2 Thyroid Stimulating Hormone (TSH) 0.463uIU/mL (0.358-3.74) Laboratory Tests Test 04/24/16 04:45 White Blood Count 4.9x10^3/uL (4.0-11.0) Red Blood Count 5.30x10^6/uL (3.50-5.40) Hemoglobin 13.9g/dL (12.0-15.5) Hematocrit 43.6% (36.0-47.0) Mean Corpuscular Volume 82fL (79-100) Mean Corpuscular Hemoglobin 26pg (25-35) Mean Corpuscular Hemoglobin Concent 32g/dL (31-37) Red Cell Distribution Width 15.9% (11.5-14.5) Platelet Count 176x10^3/uL (140-400) Neutrophils (%) (Auto) 52% (31-73) Lymphocytes (%) (Auto) 36% (24-48) Monocytes (%) (Auto) 10% (0-9) Eosinophils (%) (Auto) 2% (0-3) Basophils (%) (Auto) 0% (0-3) Neutrophils # (Auto) 2.5x10^3uL (1.8-7.7) Lymphocytes # (Auto) 1.8x10^3/uL (1.0-4.8) Monocytes # (Auto) 0.5x10^3/uL (0.0-1.1) Eosinophils # (Auto) 0.1x10^3/uL (0.0-0.7) Basophils # (Auto) 0.0x10^3/uL (0.0-0.2) Sodium Level 143mmol/L (136-145) Potassium Level 4.1mmol/L (3.5-5.1) Chloride Level 109mmol/L (98-107) Carbon Dioxide Level 26mmol/L (21-32) Anion Gap 8 (6-14) Blood Urea Nitrogen 30mg/dL (7-20) Creatinine 1.4mg/dL (0.6-1.0) Estimated GFR (Cockcroft-Gault) 43.2 Glucose Level 82mg/dL (70-99) Calcium Level 8.9mg/dL (8.5-10.1) Magnesium Level 1.9mg/dL (1.8-2.4) Total Bilirubin 0.5mg/dL (0.2-1.0) Direct Bilirubin 0.1mg/dL (0.0-0.2) Aspartate Amino Transf (AST/SGOT) 16U/L (15-37) Alanine Aminotransferase (ALT/SGPT) 19U/L (14-59) Alkaline Phosphatase 61U/L (46-116) Total Protein 6.6g/dL (6.4-8.2) Albumin 3.2g/dL (3.4-5.0) Triglycerides Level 48mg/dL (0-150) Cholesterol Level 149mg/dL (0-200) LDL Cholesterol, Calculated 92mg/dL (0-100) VLDL Cholesterol, Calculated 10mg/dL (0-40) HDL Cholesterol 47mg/dL (40-60) Cholesterol/HDL Ratio 3.2 Thyroid Stimulating Hormone (TSH) 0.463uIU/mL (0.358-3.74) JOS MEDLEY MD Apr 24, 2016 14:54
[2016-04-24 15:04] LABS: BACTERIA,URINE MODERATE /HPF (0-FEW); RBC,URINE 0 /HPF (0-2); SQUAMOUS EPITHELIAL CELL,UR MOD /LPF; YEAST,URINE PRESENT /HPF
[2016-04-24] MEDS ORDERED: ASPIRIN 81 MG TAB.CHEW PO ONE (15:45)
--- NOTE | 2016-04-24 15:47 | PDOC2 ---
NEUROLOGY CONSULT Date of Admission Date of Admission DATE: 04/24/16 TIME: 15:35 Reason for Consult Reason for Consult: IMPRESSION: Syncope. Seizure not likely. HTN HLD Renal insufficience. RECOMMENDATIONS/PLAN: HCT performed, no acute findings. Lab: see orders. ASA 81 mg daily. Zocor 10 mg HS. Treat medical diseases. HISTORY OF THE PRESENT ILLNESS: 85-y-old AA female patient with Hx of above medical diseases had a syncopal spell. While she was sitting in [place], she felt warm, light headedness, then falling, but actually did not fall. She had mental status changes but not completely LOC for a few seconds then returned to normal. No shaking, jerking or marlene movements. No focalized neurological deficits. No abnormal cranial, sensory or motor signs or deficits. She knew her surrounding shortly after her episode. No other complaints. PAST MEDICAL HISTORY: Please see above. PAST SURGERY HISTORY: No major surgery recently. ALLERGY: Unknown MEDICATIONS: Refer to [facility] FAMILY HISTORY: Non contributory. SOCIAL HISTORY: Lives at home with her grandson. Denies current smoking, drinking, and illicit drug use. REVIEW OF SYSTEMS: Constitutional: No malnutrition, weight loss, cachexia. Head: No recent traumatic brain or head injury. Skin: No edema, or rash. Ear: No infection, tinnitus. Eyes: No vision loss or color blindness. Nose: No bleeding or purulent discharges. Hearing: Mild hearing decrease. Neck: No recent injury. Breast: No history of cancer, masses,or discharges. Cardiac: HTN, HLD. Pulmonary: No COPD. GI: No GI ulcer, GI bleeding. Urinary/genital: UTI. Endocrinologic: No cousin face, craniofacial dysmorphism, polydactyly, goiter. Skeletomuscular: No muscular atrophy, deformity. Neurological: see HP. Psychiatric: Denies drug use/abuse. Otherwise, not [id number] review of systems. PHYSICAL EXAMINATION: General appearance is in no acute distress. HEENT: Normocephalic and nontraumatic. Eyes, nose, ears, and throat are unremarkable. Neck is supple. No lymphadenopathy. No crepitus. Cardiovascular: S1, S2, regular rate and rhythm. Pulmonary: Clear to auscultation bilaterally. Abdomen: Bowel sounds are positive. Extremities: No rash, lesions, or edema. No restriction of range of motion NEUROLOGICAL EXAMINATION: Alert Sitting in chair. Oriented to time, place and person. PERRL. EOMI. CN: no focal findings. Muscle tone: within normal. Muscle strength: 5 DTR: 2 Plantar reflex: Flexor response bilaterally Gait: not examined in chair. Sensory exam: no abnormal findings. No cerebellar signs elicited. F-T-N test accurate bilaterally. Current Medications Current Medications Current Medications Lorazepam (Ativan) 0.5 mg 1X ONCE IV Last administered on 04/23/16 13:48; Start 04/23/16 at 13:15; Stop 04/23/16 at 13:16; Status DC Ondansetron HCl 4 mg 4 mg PRN Q8HRS PRN IV NAUSEA/VOMITING; Start 04/23/16 at 13 :30; Stop 04/24/16 at 13:29; Status DC Sodium Chloride (Iv Sodium Chloride 0.9% 1000ml Bag) 1,000 ml @ 100 mls/hr Q10H IV Last administered on 04/24/16 05:04; Start 04/23/16 at 13:24; Stop 12/29 at 13:23; Status DC Atorvastatin Calcium (Lipitor) 10 mg HS PO ; Start 04/23/16 at 21:00 Vitamin D (Vitamin D3) 1,000 unit DAILY PO Last administered on 04/24/16 08:31 ; Start 04/24/16 at 09:00 Fluticasone Propionate (Flonase) 2 spray DAILY NS Last administered on 08:31; Start 04/24/16 at 09:00 Hydrochlorothiazide (Hydrodiuril) 25 mg DAILY PO Last administered on 08:31; Start 04/24/16 at 09:00 Lisinopril (Prinivil) 20 mg DAILY PO Last administered on 04/24/16 08:31; Start 04/24/16 at 09:00 Active Scripts Active Reported Vitamin D3 (Cholecalciferol (Vitamin D3)) 1,000 Unit Tablet 1,000 Unit PO Lisinopril 20 Mg Tablet 20 Mg PO DAILY Hydrochlorothiazide Tablet (Hydrochlorothiazide) 25 Mg Tablet 25 Mg PO DAILY Fluticasone Propionate Nasal [place] (Fluticasone Propionate) 16 Gm [place].susp 2 [place] NS DAILY Atorvastatin Calcium 10 Mg Tablet 10 Mg PO HS Allergies Allergies: Coded Allergies: No Known Drug Allergies (Unverified , 2/9/17) Vitals VITALS Vital Signs Date Time Temp Pulse Resp B/P Pulse Ox O2 Delivery O2 Flow Rate FiO2 04/24/16 11:00 97.3 60 20 121/70 99 Room Air 97.3 Labs Labs Laboratory Tests Test 04/23/16 13:05 04/23/16 13:10 04/23/16 14:30 04/24/16 04:45 Influenza Type A Antigen Negative (NEGATIVE) Influenza Type B Antigen Negative (NEGATIVE) White Blood Count 5.9x10^3/uL (4.0-11.0) 4.9x10^3/uL (4.0-11.0) Red Blood Count 5.73x10^6/uL (3.50-5.40) 5.30x10^6/uL (3.50-5.40) Hemoglobin 15.1g/dL (12.0-15.5) 13.9g/dL (12.0-15.5) Hematocrit 47.0% (36.0-47.0) 43.6% (36.0-47.0) Mean Corpuscular Volume 82fL (79-100) 82fL (79-100) Mean Corpuscular Hemoglobin 26pg (25-35) 26pg (25-35) Mean Corpuscular Hemoglobin Concent 32g/dL (31-37) 32g/dL (31-37) Red Cell Distribution Width 15.9% (11.5-14.5) 15.9% (11.5-14.5) Platelet Count 189x10^3/uL (140-400) 176x10^3/uL (140-400) Neutrophils (%) (Auto) 78% (31-73) 52% (31-73) Lymphocytes (%) (Auto) 14% (24-48) 36% (24-48) Monocytes (%) (Auto) 7% (0-9) 10% (0-9) Eosinophils (%) (Auto) 0% (0-3) 2% (0-3) Basophils (%) (Auto) 1% (0-3) 0% (0-3) Neutrophils # (Auto) 4.6x10^3uL (1.8-7.7) 2.5x10^3uL (1.8-7.7) Lymphocytes # (Auto) 0.8x10^3/uL (1.0-4.8) 1.8x10^3/uL (1.0-4.8) Monocytes # (Auto) 0.4x10^3/uL (0.0-1.1) 0.5x10^3/uL (0.0-1.1) Eosinophils # (Auto) 0.0x10^3/uL (0.0-0.7) 0.1x10^3/uL (0.0-0.7) Basophils # (Auto) 0.0x10^3/uL (0.0-0.2) 0.0x10^3/uL (0.0-0.2) Sodium Level 139mmol/L (136-145) 143mmol/L (136-145) Potassium Level 4.1mmol/L (3.5-5.1) 4.1mmol/L (3.5-5.1) Chloride Level 102mmol/L (98-107) 109mmol/L (98-107) Carbon Dioxide Level 29mmol/L (21-32) 26mmol/L (21-32) Anion Gap 8 (6-14) 8 (6-14) Blood Urea Nitrogen 30mg/dL (7-20) 30mg/dL (7-20) Creatinine 1.6mg/dL (0.6-1.0) 1.4mg/dL (0.6-1.0) Estimated GFR (Cockcroft-Gault) 37.1 43.2 Glucose Level 147mg/dL (70-99) 82mg/dL (70-99) Calcium Level 9.7mg/dL (8.5-10.1) 8.9mg/dL (8.5-10.1) Urine Collection Type Unknown Urine Color Yellow Urine Clarity Clear Urine pH 6.5 Urine Specific [place] <=1.005 Urine Protein Negativemg/dL (NEG-TRACE) Urine Glucose (UA) Negativemg/dL (NEG) Urine Ketones (Stick) Negativemg/dL (NEG) Urine Blood Negative (NEG) Urine Nitrite Negative (NEG) Urine Bilirubin Negative (NEG) Urine Urobilinogen Dipstick 1.0mg/dL (0.2 mg/dL) Urine Leukocyte Esterase Small (NEG) Urine RBC 0/HPF (0-2) Urine WBC 1-4/HPF (0-4) Urine Squamous Epithelial Cells Mod/LPF Urine Bacteria Moderate/HPF (0-FEW) Urine Yeast Present/HPF Magnesium Level 1.9mg/dL (1.8-2.4) Total Bilirubin 0.5mg/dL (0.2-1.0) Direct Bilirubin 0.1mg/dL (0.0-0.2) Aspartate Amino Transf (AST/SGOT) 16U/L (15-37) Alanine Aminotransferase (ALT/SGPT) 19U/L (14-59) Alkaline Phosphatase 61U/L (46-116) Total Protein 6.6g/dL (6.4-8.2) Albumin 3.2g/dL (3.4-5.0) Triglycerides Level 48mg/dL (0-150) Cholesterol Level 149mg/dL (0-200) LDL Cholesterol, Calculated 92mg/dL (0-100) VLDL Cholesterol, Calculated 10mg/dL (0-40) HDL Cholesterol 47mg/dL (40-60) Cholesterol/HDL Ratio 3.2 Thyroid Stimulating Hormone (TSH) 0.463uIU/mL (0.358-3.74) Laboratory Tests Test 04/24/16 04:45 White Blood Count 4.9x10^3/uL (4.0-11.0) Red Blood Count 5.30x10^6/uL (3.50-5.40) Hemoglobin 13.9g/dL (12.0-15.5) Hematocrit 43.6% (36.0-47.0) Mean Corpuscular Volume 82fL (79-100) Mean Corpuscular Hemoglobin 26pg (25-35) Mean Corpuscular Hemoglobin Concent 32g/dL (31-37) Red Cell Distribution Width 15.9% (11.5-14.5) Platelet Count 176x10^3/uL (140-400) Neutrophils (%) (Auto) 52% (31-73) Lymphocytes (%) (Auto) 36% (24-48) Monocytes (%) (Auto) 10% (0-9) Eosinophils (%) (Auto) 2% (0-3) Basophils (%) (Auto) 0% (0-3) Neutrophils # (Auto) 2.5x10^3uL (1.8-7.7) Lymphocytes # (Auto) 1.8x10^3/uL (1.0-4.8) Monocytes # (Auto) 0.5x10^3/uL (0.0-1.1) Eosinophils # (Auto) 0.1x10^3/uL (0.0-0.7) Basophils # (Auto) 0.0x10^3/uL (0.0-0.2) Sodium Level 143mmol/L (136-145) Potassium Level 4.1mmol/L (3.5-5.1) Chloride Level 109mmol/L (98-107) Carbon Dioxide Level 26mmol/L (21-32) Anion Gap 8 (6-14) Blood Urea Nitrogen 30mg/dL (7-20) Creatinine 1.4mg/dL (0.6-1.0) Estimated GFR (Cockcroft-Gault) 43.2 Glucose Level 82mg/dL (70-99) Calcium Level 8.9mg/dL (8.5-10.1) Magnesium Level 1.9mg/dL (1.8-2.4) Total Bilirubin 0.5mg/dL (0.2-1.0) Direct Bilirubin 0.1mg/dL (0.0-0.2) Aspartate Amino Transf (AST/SGOT) 16U/L (15-37) Alanine Aminotransferase (ALT/SGPT) 19U/L (14-59) Alkaline Phosphatase 61U/L (46-116) Total Protein 6.6g/dL (6.4-8.2) Albumin 3.2g/dL (3.4-5.0) Triglycerides Level 48mg/dL (0-150) Cholesterol Level 149mg/dL (0-200) LDL Cholesterol, Calculated 92mg/dL (0-100) VLDL Cholesterol, Calculated 10mg/dL (0-40) HDL Cholesterol 47mg/dL (40-60) Cholesterol/HDL Ratio 3.2 Thyroid Stimulating Hormone (TSH) 0.463uIU/mL (0.358-3.74) ILEANA MOE MD Apr 24, 2016 15:47
--- NOTE | 2016-04-24 19:28 | CARD ---
APPROVED REPORT EXAM: Two-dimensional and M-mode echocardiogram with Doppler and color Doppler. Other Information Quality : Good INDICATION Syncope 2D DIMENSIONS RVDd2.9 (2.9-3.5cm)Left Atrium(2D)3.0 (1.6-4.0cm) IVSd1.2 (0.7-1.1cm)Aortic Root(2D)2.5 (2.0-3.7cm) LVDd4.8 (3.9-5.9cm)LVOT Diameter1.9 (1.8-2.4cm) PWd1.0 (0.7-1.1cm)LVDs2.8 (2.5-4.0cm) FS (%) 30.0 %SV75.9 ml LVEF(%)60.0 (>50%) Aortic Valve AoV Peak Matt.149.9cm/sAoV VTI35.7cm AO Peak GR.9.0mmHgLVOT Peak Matt.127.7cm/s LVOT VTI 32.29cmAO Mean GR.5mmHg KERRI (VMAX)2.36et1EER (VTI)2.56cm2 Mitral Valve MV E Boenbkot02.4cm/sMV DECEL [id number] MV A Hunahndw864.4cm/sMV [id number] E/A Ratio0.5MVA (PHT)4.42cm2 TDI E/Lateral E'6.7 Tricuspid Valve TR P. Oiouqtwq867td/sRAP MELWXPOO6vhPc TR Peak Gr.[id number] Pulmonary Vein S1 Hceoywus77.2cm/sD2 Cndcaqqn20.9cm/s PVa [id number] LEFT VENTRICLE The left ventricle is normal size. There is mild concentric left ventricular hypertrophy. The left ve ntricular systolic function is normal and the ejection fraction is low normal. EF 55% There is normal LV segmental wall motion with the exception of septal abnormality due to conduction defect. Transmit ral Doppler flow pattern is Grade I-abnormal relaxation pattern. (mild) RIGHT VENTRICLE The right ventricle is normal size. The right ventricular systolic function is normal. ATRIA The left atrium size is normal. The right atrium size is normal. The interatrial septum is intact wit h no evidence for an atrial septal defect or patent foramen ovale as noted on 2-D or Doppler imaging. AORTIC VALVE The aortic valve is normal in structure and function. Doppler and Color Flow revealed no significant aortic regurgitation. There is no significant aortic valvular stenosis. MITRAL VALVE The mitral valve is normal in structure and function. There is no evidence of mitral valve prolapse. There is no mitral valve stenosis. Doppler and Color-flow revealed trace to mild mitral regurgitation . TRICUSPID VALVE The tricuspid valve is normal in structure and function. Doppler and Color Flow revealed mild tricusp id regurgitation. There is mild pulmonary hypertension. The PA pressure was estimated at 41 mmHg. The re is no tricuspid valve stenosis. PULMONIC VALVE Doppler and Color Flow revealed no pulmonic valvular regurgitation. There is no pulmonic valvular panchito nosis. GREAT VESSELS The aortic root is normal in size. The ascending aorta is normal in size. The IVC is normal in size a nd collapses >50% with inspiration. PERICARDIAL EFFUSION There is no evidence of significant pericardial effusion. Critical Notification Critical Value: No <Conclusion> The left ventricular systolic function is normal and the ejection fraction is low normal. EF 55% There is normal LV segmental wall motion with the exception of septal abnormality due to conduction d efect. Transmitral Doppler flow pattern is Grade I-abnormal relaxation pattern. (mild) Doppler and Color Flow revealed mild tricuspid regurgitation. There is mild pulmonary hypertension. The PA pressure was estimated at 41 mmHg.
[2016-04-24] MEDS: ATORVASTATIN CALCIUM 10 MG TABLET. PO SCH (20:09)
[2016-04-25 03:00] VITALS: BP 144/80
--- NOTE | 2016-04-25 04:31 | CONS ---
DATE OF CONSULTATION: PRIMARY PHYSICIAN: Dr. Suresh. REASON FOR CONSULTATION: Elevated creatinine. 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 She claims she took hydrochlorothiazide and she felt flushed and warm. There is some question whether she passed out or not. We were asked to see her for elevated creatinine of 1.6. She claims she sees her primary care physician who has recently done a renal sonogram and she will follow up with him. She does not want to follow with us currently at this time. For rest of the details, see electronic ____ consult note. She is feeling fine at this time and asked if she can even go home. JOS MEDLEY MD DR: CHARISSE/shelton JOB#: [id number] / [id number]
[2016-04-25 04:50] LABS: BILIRUBIN,URINE NEGATIVE (NEG); GLUCOSE,URINE NEGATIVE (NEG); NITRITE,URINE NEGATIVE (NEG); PROTEIN,URINE NEGATIVE (NEG-TRACE)
[2016-04-25 05:10] LABS: BACTERIA,URINE 0 /HPF (0-FEW); RBC,URINE OCC /HPF (0-2); SQUAMOUS EPITHELIAL CELL,UR FEW /LPF
[2016-04-25 05:54] LABS: BASO % 1 % (0-3); EOS % 3 % (0-3); HEMATOCRIT 42.2 % (36.0-47.0); HEMOGLOBIN 13.6 g/dL (12.0-15.5); LYMPH # 1.9 x10^3/uL (1.0-4.8); LYMPH % 38 % (24-48); MEAN CORPUSCULAR HEMOGLOBIN 26 pg (25-35); MEAN CORPUSCULAR HGB CONC 32 g/dL (31-37); MEAN CORPUSCULAR VOLUME 81 fL (79-100); MONO % 9 % (0-9); NEUT % 49 % (31-73); PLATELET COUNT 195 x10^3/uL (140-400); RED BLOOD COUNT 5.19 x10^6/uL (3.50-5.40); RED CELL DISTRIBUTION WIDTH 15.8 % (11.5-14.5); WHITE BLOOD COUNT 5.1 x10^3/uL (4.0-11.0)
[2016-04-25 06:24] LABS: CALCIUM 8.5 mg/dL (8.5-10.1); CREATININE 1.1 mg/dL (0.6-1.0); GFR 57.1; POTASSIUM 3.8 mmol/L (3.5-5.1)
[2016-04-25 07:45] VITALS: BP 136/83
[2016-04-25] MEDS: FLUTICASONE 50MCG/NASAL SPRAY 16GM BOTTLE. NS SCH (09:00)
[2016-04-25] MEDS: HYDROCHLOROTHIAZIDE 25 MG TABLET PO SCH (11:01)
[2016-04-25] MEDS: CHOLECALCIFEROL (VITAMIN D3) 1,000 UNIT TABLET PO SCH (11:01)
[2016-04-25] MEDS: LISINOPRIL 20 MG TABLET PO SCH (11:02)
--- NOTE | 2016-04-25 11:05 | PDOC ---
PROGRESS NOTES Chief Complaint Chief Complaint 1. Syncope 2. Dehydration 3. Hypertension 4. Hyperlipidemia 5. Azotemia History of Present Illness History of Present Illness Pt resting in bed today Pt returning to baseline Discussed improvement of BUN/Cr Discussed input from subspecialties with pt Possible D/C today if OK with subspecialties Vitals Vitals Vital Signs Date Time Temp Pulse Resp B/P Pulse Ox O2 Delivery O2 Flow Rate FiO2 04/25/16 07:45 98.0 60 18 136/83 100 Room Air 98.0 Physical Exam General: Alert, Oriented X3, Cooperative, No acute distress Heart: Regular rate, Normal S1, Normal S2, Other (2/6 systolic murmur to YANIRA border) Lungs: Clear Abdomen: Normal bowel sounds, Soft, No tenderness, No hepatosplenomegaly Extremities: No cyanosis, No edema Skin: No breakdown Labs LABS Laboratory Tests Test 04/24/16 21:00 04/25/16 05:41 Urine Collection Type Unknown Urine Color Yellow Urine Clarity Clear Urine pH 7.0 Urine Specific [place] 1.010 Urine Protein Negativemg/dL (NEG-TRACE) Urine Glucose (UA) Negativemg/dL (NEG) Urine Ketones (Stick) Negativemg/dL (NEG) Urine Blood Negative (NEG) Urine Nitrite Negative (NEG) Urine Bilirubin Negative (NEG) Urine Urobilinogen Dipstick 1.0mg/dL (0.2 mg/dL) Urine Leukocyte Esterase Negative (NEG) Urine RBC Occ/HPF (0-2) Urine WBC 1-4/HPF (0-4) Urine Squamous Epithelial Cells Few/LPF Urine Bacteria 0/HPF (0-FEW) White Blood Count 5.1x10^3/uL (4.0-11.0) Red Blood Count 5.19x10^6/uL (3.50-5.40) Hemoglobin 13.6g/dL (12.0-15.5) Hematocrit 42.2% (36.0-47.0) Mean Corpuscular Volume 81fL (79-100) Mean Corpuscular Hemoglobin 26pg (25-35) Mean Corpuscular Hemoglobin Concent 32g/dL (31-37) Red Cell Distribution Width 15.8% (11.5-14.5) Platelet Count 195x10^3/uL (140-400) Neutrophils (%) (Auto) 49% (31-73) Lymphocytes (%) (Auto) 38% (24-48) Monocytes (%) (Auto) 9% (0-9) Eosinophils (%) (Auto) 3% (0-3) Basophils (%) (Auto) 1% (0-3) Neutrophils # (Auto) 2.5x10^3uL (1.8-7.7) Lymphocytes # (Auto) 1.9x10^3/uL (1.0-4.8) Monocytes # (Auto) 0.5x10^3/uL (0.0-1.1) Eosinophils # (Auto) 0.2x10^3/uL (0.0-0.7) Basophils # (Auto) 0.0x10^3/uL (0.0-0.2) Sodium Level 144mmol/L (136-145) Potassium Level 3.8mmol/L (3.5-5.1) Chloride Level 110mmol/L (98-107) Carbon Dioxide Level 28mmol/L (21-32) Anion Gap 6 (6-14) Blood Urea Nitrogen 20mg/dL (7-20) Creatinine 1.1mg/dL (0.6-1.0) Estimated GFR (Cockcroft-Gault) 57.1 Glucose Level 82mg/dL (70-99) Calcium Level 8.5mg/dL (8.5-10.1) Review of Systems Review of Systems Complains of fatigue Complains of hunger Assessment and Plan Assessmemt and Plan Problems Medical Problems: (1) Syncope Status: Acute (2) TIA (transient ischemic attack) Status: Acute Assessment: 1. Syncope 2. Dehydration 3. Hypertension 4. Hyperlipidemia 5. Azotemia Plan: Possible D/C if Ok with subspecialties Aspirin 81mg daily Zocor 10mg HS Continue home meds Appreciate the input of subspecialties Problems: Comment Review of Relevant I have reviewed the following items regina (where applicable) has been applied. Labs Laboratory Tests Test 04/23/16 13:05 04/23/16 13:10 04/23/16 14:30 04/24/16 04:45 Influenza Type A Antigen Negative (NEGATIVE) Influenza Type B Antigen Negative (NEGATIVE) White Blood Count 5.9x10^3/uL (4.0-11.0) 4.9x10^3/uL (4.0-11.0) Red Blood Count 5.73x10^6/uL (3.50-5.40) 5.30x10^6/uL (3.50-5.40) Hemoglobin 15.1g/dL (12.0-15.5) 13.9g/dL (12.0-15.5) Hematocrit 47.0% (36.0-47.0) 43.6% (36.0-47.0) Mean Corpuscular Volume 82fL (79-100) 82fL (79-100) Mean Corpuscular Hemoglobin 26pg (25-35) 26pg (25-35) Mean Corpuscular Hemoglobin Concent 32g/dL (31-37) 32g/dL (31-37) Red Cell Distribution Width 15.9% (11.5-14.5) 15.9% (11.5-14.5) Platelet Count 189x10^3/uL (140-400) 176x10^3/uL (140-400) Neutrophils (%) (Auto) 78% (31-73) 52% (31-73) Lymphocytes (%) (Auto) 14% (24-48) 36% (24-48) Monocytes (%) (Auto) 7% (0-9) 10% (0-9) Eosinophils (%) (Auto) 0% (0-3) 2% (0-3) Basophils (%) (Auto) 1% (0-3) 0% (0-3) Neutrophils # (Auto) 4.6x10^3uL (1.8-7.7) 2.5x10^3uL (1.8-7.7) Lymphocytes # (Auto) 0.8x10^3/uL (1.0-4.8) 1.8x10^3/uL (1.0-4.8) Monocytes # (Auto) 0.4x10^3/uL (0.0-1.1) 0.5x10^3/uL (0.0-1.1) Eosinophils # (Auto) 0.0x10^3/uL (0.0-0.7) 0.1x10^3/uL (0.0-0.7) Basophils # (Auto) 0.0x10^3/uL (0.0-0.2) 0.0x10^3/uL (0.0-0.2) Sodium Level 139mmol/L (136-145) 143mmol/L (136-145) Potassium Level 4.1mmol/L (3.5-5.1) 4.1mmol/L (3.5-5.1) Chloride Level 102mmol/L (98-107) 109mmol/L (98-107) Carbon Dioxide Level 29mmol/L (21-32) 26mmol/L (21-32) Anion Gap 8 (6-14) 8 (6-14) Blood Urea Nitrogen 30mg/dL (7-20) 30mg/dL (7-20) Creatinine 1.6mg/dL (0.6-1.0) 1.4mg/dL (0.6-1.0) Estimated GFR (Cockcroft-Gault) 37.1 43.2 Glucose Level 147mg/dL (70-99) 82mg/dL (70-99) Calcium Level 9.7mg/dL (8.5-10.1) 8.9mg/dL (8.5-10.1) Urine Collection Type Unknown Urine Color Yellow Urine Clarity Clear Urine pH 6.5 Urine Specific [place] <=1.005 Urine Protein Negativemg/dL (NEG-TRACE) Urine Glucose (UA) Negativemg/dL (NEG) Urine Ketones (Stick) Negativemg/dL (NEG) Urine Blood Negative (NEG) Urine Nitrite Negative (NEG) Urine Bilirubin Negative (NEG) Urine Urobilinogen Dipstick 1.0mg/dL (0.2 mg/dL) Urine Leukocyte Esterase Small (NEG) Urine RBC 0/HPF (0-2) Urine WBC 1-4/HPF (0-4) Urine Squamous Epithelial Cells Mod/LPF Urine Bacteria Moderate/HPF (0-FEW) Urine Yeast Present/HPF Magnesium Level 1.9mg/dL (1.8-2.4) Total Bilirubin 0.5mg/dL (0.2-1.0) Direct Bilirubin 0.1mg/dL (0.0-0.2) Aspartate Amino Transf (AST/SGOT) 16U/L (15-37) Alanine Aminotransferase (ALT/SGPT) 19U/L (14-59) Alkaline Phosphatase 61U/L (46-116) Total Protein 6.6g/dL (6.4-8.2) Albumin 3.2g/dL (3.4-5.0) Triglycerides Level 48mg/dL (0-150) Cholesterol Level 149mg/dL (0-200) LDL Cholesterol, Calculated 92mg/dL (0-100) VLDL Cholesterol, Calculated 10mg/dL (0-40) HDL Cholesterol 47mg/dL (40-60) Cholesterol/HDL Ratio 3.2 Thyroid Stimulating Hormone (TSH) 0.463uIU/mL (0.358-3.74) Test 04/24/16 21:00 04/25/16 05:41 Urine Collection Type Unknown Urine Color Yellow Urine Clarity Clear Urine pH 7.0 Urine Specific [place] 1.010 Urine Protein Negativemg/dL (NEG-TRACE) Urine Glucose (UA) Negativemg/dL (NEG) Urine Ketones (Stick) Negativemg/dL (NEG) Urine Blood Negative (NEG) Urine Nitrite Negative (NEG) Urine Bilirubin Negative (NEG) Urine Urobilinogen Dipstick 1.0mg/dL (0.2 mg/dL) Urine Leukocyte Esterase Negative (NEG) Urine RBC Occ/HPF (0-2) Urine WBC 1-4/HPF (0-4) Urine Squamous Epithelial Cells Few/LPF Urine Bacteria 0/HPF (0-FEW) White Blood Count 5.1x10^3/uL (4.0-11.0) Red Blood Count 5.19x10^6/uL (3.50-5.40) Hemoglobin 13.6g/dL (12.0-15.5) Hematocrit 42.2% (36.0-47.0) Mean Corpuscular Volume 81fL (79-100) Mean Corpuscular Hemoglobin 26pg (25-35) Mean Corpuscular Hemoglobin Concent 32g/dL (31-37) Red Cell Distribution Width 15.8% (11.5-14.5) Platelet Count 195x10^3/uL (140-400) Neutrophils (%) (Auto) 49% (31-73) Lymphocytes (%) (Auto) 38% (24-48) Monocytes (%) (Auto) 9% (0-9) Eosinophils (%) (Auto) 3% (0-3) Basophils (%) (Auto) 1% (0-3) Neutrophils # (Auto) 2.5x10^3uL (1.8-7.7) Lymphocytes # (Auto) 1.9x10^3/uL (1.0-4.8) Monocytes # (Auto) 0.5x10^3/uL (0.0-1.1) Eosinophils # (Auto) 0.2x10^3/uL (0.0-0.7) Basophils # (Auto) 0.0x10^3/uL (0.0-0.2) Sodium Level 144mmol/L (136-145) Potassium Level 3.8mmol/L (3.5-5.1) Chloride Level 110mmol/L (98-107) Carbon Dioxide Level 28mmol/L (21-32) Anion Gap 6 (6-14) Blood Urea Nitrogen 20mg/dL (7-20) Creatinine 1.1mg/dL (0.6-1.0) Estimated GFR (Cockcroft-Gault) 57.1 Glucose Level 82mg/dL (70-99) Calcium Level 8.5mg/dL (8.5-10.1) Laboratory Tests Test 04/24/16 21:00 04/25/16 05:41 Urine Collection Type Unknown Urine Color Yellow Urine Clarity Clear Urine pH 7.0 Urine Specific [place] 1.010 Urine Protein Negativemg/dL (NEG-TRACE) Urine Glucose (UA) Negativemg/dL (NEG) Urine Ketones (Stick) Negativemg/dL (NEG) Urine Blood Negative (NEG) Urine Nitrite Negative (NEG) Urine Bilirubin Negative (NEG) Urine Urobilinogen Dipstick 1.0mg/dL (0.2 mg/dL) Urine Leukocyte Esterase Negative (NEG) Urine RBC Occ/HPF (0-2) Urine WBC 1-4/HPF (0-4) Urine Squamous Epithelial Cells Few/LPF Urine Bacteria 0/HPF (0-FEW) White Blood Count 5.1x10^3/uL (4.0-11.0) Red Blood Count 5.19x10^6/uL (3.50-5.40) Hemoglobin 13.6g/dL (12.0-15.5) Hematocrit 42.2% (36.0-47.0) Mean Corpuscular Volume 81fL (79-100) Mean Corpuscular Hemoglobin 26pg (25-35) Mean Corpuscular Hemoglobin Concent 32g/dL (31-37) Red Cell Distribution Width 15.8% (11.5-14.5) Platelet Count 195x10^3/uL (140-400) Neutrophils (%) (Auto) 49% (31-73) Lymphocytes (%) (Auto) 38% (24-48) Monocytes (%) (Auto) 9% (0-9) Eosinophils (%) (Auto) 3% (0-3) Basophils (%) (Auto) 1% (0-3) Neutrophils # (Auto) 2.5x10^3uL (1.8-7.7) Lymphocytes # (Auto) 1.9x10^3/uL (1.0-4.8) Monocytes # (Auto) 0.5x10^3/uL (0.0-1.1) Eosinophils # (Auto) 0.2x10^3/uL (0.0-0.7) Basophils # (Auto) 0.0x10^3/uL (0.0-0.2) Sodium Level 144mmol/L (136-145) Potassium Level 3.8mmol/L (3.5-5.1) Chloride Level 110mmol/L (98-107) Carbon Dioxide Level 28mmol/L (21-32) Anion Gap 6 (6-14) Blood Urea Nitrogen 20mg/dL (7-20) Creatinine 1.1mg/dL (0.6-1.0) Estimated GFR (Cockcroft-Gault) 57.1 Glucose Level 82mg/dL (70-99) Calcium Level 8.5mg/dL (8.5-10.1) Medications Current Medications Lorazepam (Ativan) 0.5 mg 1X ONCE IV Last administered on 04/23/16t 13:48; Start 04/23/16 at 13:15; Stop 04/23/16 at 13:16; Status DC Ondansetron HCl 4 mg 4 mg PRN Q8HRS PRN IV NAUSEA/VOMITING; Start 04/23/16 at 13 :30; Stop 04/24/16 at 13:29; Status DC Sodium Chloride (Iv Sodium Chloride 0.9% 1000ml Bag) 1,000 ml @ 100 mls/hr Q10H IV Last administered on 04/24/16 20:09; Start 04/23/16 at 13:24; Stop 12/29 at 13:23; Status DC Atorvastatin Calcium (Lipitor) 10 mg HS PO ; Start 04/23/16 at 21:00 Vitamin D (Vitamin D3) 1,000 unit DAILY PO Last administered on 04/24/16 08:31 ; Start 04/24/16 at 09:00 Fluticasone Propionate (Flonase) 2 spray DAILY NS Last administered on 08:31; Start 04/24/16 at 09:00 Hydrochlorothiazide (Hydrodiuril) 25 mg DAILY PO Last administered on 08:31; Start 04/24/16 at 09:00 Lisinopril (Prinivil) 20 mg DAILY PO Last administered on 04/24/16 08:31; Start 04/24/16 at 09:00 Aspirin (Children'S Aspirin) 81 mg 1X ONCE PO Last administered on 04/24/16 17:53; Start 04/24/16 at 15:45; Stop 04/24/16 at 15:46; Status DC Active Scripts Active Reported Vitamin D3 (Cholecalciferol (Vitamin D3)) 1,000 Unit Tablet 1,000 Unit PO Lisinopril 20 Mg Tablet 20 Mg PO DAILY Hydrochlorothiazide Tablet (Hydrochlorothiazide) 25 Mg Tablet 25 Mg PO DAILY Fluticasone Propionate Nasal [place] (Fluticasone Propionate) 16 Gm [place].susp 2 [place] NS DAILY Atorvastatin Calcium 10 Mg Tablet 10 Mg PO HS Vitals/I & O Vital Sign - Last 24 Hours 04/24/16 04/24/16 04/24/16 04/24/16 11:00 15:00 19:43 20:00 Temp 97.3 97.7 97.6 97.3 97.7 97.6 Pulse 60 58 64 Resp 20 20 18 B/P 121/70 139/67 136/76 Pulse Ox 99 92 98 O2 Delivery Room Air Room Air Room Air Room Air 04/24/16 04/25/16 04/25/16 23:32 03:00 07:45 Temp 97.8 98.1 98.0 97.8 98.1 98.0 Pulse 68 57 60 Resp 18 18 18 B/P 131/69 144/80 136/83 Pulse Ox 98 100 100 O2 Delivery Room Air Room Air Room Air Intake and Output 04/24/16 04/24/16 04/25/16 15:00 23:00 07:00 Output Total 3300 ml Balance -3300 ml MICAH GALLEGOS III DO Apr 25, 2016 11:05
[2016-04-25 11:15] VITALS: BP 128/78
[2016-04-25 15:47] VITALS: BP 141/78
--- NOTE | 2016-05-04 09:43 | DS ---
DATE OF DISCHARGE: 04/25/2016 ADMISSION DIAGNOSES: 1. Syncope. 2. Acute renal failure. DISCHARGE DIAGNOSES: 1. Resolving syncope. 2. Resolving acute renal failure secondary to probable tubular necrosis. HOSPITAL COURSE: The patient is a pleasant 85-year-old female who presented with TIA symptoms and syncope. She also had acute renal failure with a creatinine of 1.4. We admitted the patient, gave her fluids. Her creatinine went back down to 1.1. We did some physical therapy and basically she returned to her baseline, we discharged to home. DISPOSITION: Home. ACTIVITY: As tolerated. DIET: Low sodium. MEDICATIONS: Please see the MRAD. TOTAL TIME ON DISCHARGE: 37 minutes. MICAH GALLEGOS DO DR: JANAE/shelton JOB#: [id number] / [id number]
== END 2016-04-25 16:00 | disposition home or self-care (01) | DRG 683 ==
LOC: ER 11:35 → 6 SOUTH 13:18
PROVIDERS: ADMIT Internal Medicine; ATTEND Internal Medicine
DX: N17.0 Acute kidney failure with tubular necrosis (principal); E44.0 Moderate protein-calorie malnutrition; E86.0 Dehydration; R55 Syncope and collapse; E78.00 Pure hypercholesterolemia, unspecified; E78.5 Hyperlipidemia, unspecified; I12.9 Hypertensive chronic kidney disease with stage 1 through stage 4 chronic kidney disease, or unspecified chronic kidney disease; N18.3 Chronic kidney disease, stage 3 (moderate); M19.90 Unspecified osteoarthritis, unspecified site; Z82.49 Family history of ischemic heart disease and other diseases of the circulatory system
CPT/HCPCS: 36415; 70450; 71010; 80048; 80061; 80076; 81001; 83735; 84443; 85027; 87086; 87804; 93005; 93306; 96374; J2060; J7030; 99285-25